=== PATIENT | female | born 1945 | race Caucasian/White ===

== ENCOUNTER 2018-03-15 10:00 | Emergency (ER) | payer MEDICARE, OTHER ==
[2018-03-15] MEDS ORDERED: cloNIDine 0.1 MG Tab PO SCH (11:45)
--- NOTE | 2018-03-18 10:59 | ER ---
DATE SEEN: 03/15/2018 TIME SEEN: The patient was seen at 1020 hours. CHIEF COMPLAINT: High blood pressure. 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 She was seen at the dentist recently to have her #8 tooth fixed "this bothers me as every time I bump it, I have pain." It is "chipped and has got a chip in the back of it." When she was at the dentist, she was told her blood pressure was elevated. Consequently, she went to see Bibi Reese. In the clinic today, her blood pressure was elevated at 230/86 and 252/100. Consequently, she was sent here for further evaluation. Laboratory work was performed and Bibi Reese spoke to me about her status. The patient's is . She is a nonsmoker, but drinks 5 beers a day. "I drink the beers because I am so anxious. I usually sit down at night and drink 5 beers a night." Last night, she got up around 0300 hours and she thought she was having beginning of her migraine. In the past, she used beta-blockers, but they do not work for headache and the fact she had a beta-jannette to help treat her blood pressure in the past and ended up falling to the floor and lying on the floor and crawling on her knees back to bed. "I do not want to take those beta- blockers anymore." She is not on any medicines for headaches. During the night, she took the ibuprofen because the ibuprofen always worked for migraines. She did not have a migraine last night, but she felt different. Consequently, she took the medicine. She felt her hands were swollen. With the elevated blood pressures, she was sent to the ED for further evaluation. She has not seen Dr. Singleton for 10 plus years. She is not a smoker. Presently, she denies lightheadedness, compromise in vision, weakness in arms, paresis, difficulty walking, chest pain, shortness of breath, cough, abdominal discomfort, back pain, although she has mild chronic low back pain. At one time, she was advised to have a shot in her back, but she denies habits, but she has had chronic low back pain, which she ignores because "she is too busy to have back pain," but she has pain that radiates down both legs, more at the left than right down to her heels (radicular pain). Past medical history significant for small bowel obstruction. Did not require excision of any bowel. "Everything was tangled up in there and had scarring." In the past, she had something wrong with her back, and one day she woke up, she felt cold and shaky and shaking her feet. Her knees hurts and "there was something wrong with my fifth vertebra and that problem has gone away." With her losartan, she was made to feel awful this morning. She was cold and shaky and she had aches in her knees because of losartan. "[place] like I had fluid on my fifth vertebrae." Her lower back hurt more than usually. Medicine makes her muscles ache slightly (side effect of losartan possibly). MEDICATIONS: 1. Flexeril 5 mg t.i.d., which was given to her by Bibi Reese 3 days ago. 2. Losartan 100 mg daily. She took a Flexeril on 03/11/2018 and Sunday she took losartan plus Flexeril, on losartan plus Flexeril. REVIEW OF SYSTEMS: Negative except for noted above. She wears glasses. Has decreased hearing. Very pleasant. No difficulty swallowing. No cardiorespiratory symptoms. No GI symptoms. No symptoms. No frequency, urgency, or dysuria. She has psychiatric-moderate anxiety. She drinks to decrease anxiety. It helps her relax. She is always "high strung" and she notes that she really does not need to drink beers, but that helps her relax in the evening. Denies depression. ALLERGIES: Penicillin. PHYSICAL EXAMINATION: VITAL SIGNS: Repeated blood pressures 212/94, 200/82, 205/87, 230/84. Heart rate 87 to 77, respirations 16 to 18, oxygen saturation 98%. Weight 77.1, 29.2 kg per metered squared. GENERAL: Very pleasant woman. She looks her age. She is very energetic, very talkative. She moves her hands around when she talks a lot. She has a great deal of emotional inflection in her voice and is very happy and energetic voice. HEENT: Eye grounds, I cannot see any AV nicking, but there is moderate dilation of the retinal veins, slightly large and normal. Moderate copper wiring of the arterial vasculature. No exudates noted. Hearing slightly decreased. Pharynx without abnormality. Gag in place. Has a tender #8 tooth. I just had her point to it because she did not want me to touch it or palpate or percuss it. NECK: She has bilateral bruits in her neck. Soft. No thyromegaly or masses in the neck. No cervical adenopathy. No tracheal tug. LUNGS: Clear without rales, rhonchi, or wheezes. HEART: S1, S2. There is a soft systolic murmur, crescendo-decrescendo, left upper sternal border greater than right upper sternal border, 1-2 intensity. It is also heard at left pectoral region and left apex. No chest wall tenderness. BREASTS: Not examined. ABDOMEN: Soft, nontender. No megaly. Bowel sounds present. Incision from the xiphoid to below the umbilicus without hernia. She feels a slight discomfort to the lateral left upper quadrant. There is a slight difference in muscle integrity aside from perhaps some mild hernia, but no evidence for mass effect. No CVA percussion tenderness. EXTREMITIES: Without edema. NEURO: Deep tendon reflexes hypoactive in upper and lower extremities. Cranial nerves 2 through 12 intact. Oriented appropriately. Gait appropriate. Romberg negative. No tremor. No pronator drift and no dysmetria. ASSESSMENT: 1. Hypertensive urgency. 2. Moderate anxiety. 3. Alcoholism with alcohol withdrawal. 4. She used alcohol to decrease her anxiety, needs to use an alternative approach. 5. Chronic low back pain with some radicular symptoms which she ignores. 6. Aortic murmur, possible atherosclerotic changes and mild mitral murmur. 7. The patient's symptoms possibly may be related to heat stress. She did not have electrolyte abnormalities. LABORATORY FINDINGS: CBC was normal with slightly elevated basophils 4%, otherwise lymphs 24, monos 8. White count 7200, hemoglobin 15.3. GFR is 54 which is relatively normal for age. BUN and creatinine ratio does not reflect dehydration 17, suggests she has adequate hydration today. Troponin less than 0.017 and total protein slightly elevated with EKG in sinus rhythm, slight borderline increased [place] interval, 212 microseconds and wandering baseline aVL and AVF with interventricular conduction defect, lead III and perhaps a Q in V3. No ST elevation. PLAN: 1. The patient should drink 2 quarts of water a day. She received clonidine 0.1 mg in the ED. 2 Start with clonidine 0.1 mg daily. A slow drop in her pressure would be helpful. Also use daughter's blood pressure machine at home. There maybe white coat syndrome effect here. She has ordered a blood pressure machine but it may take a while before she gets this. 3. Followup with the doctor and a healthcare provider next week. 4. Write down her blood pressures several times a day. 5. Discontinue drinking 5 beers a day and limit herself to 1 beer a day. ADDENDUM: The patient's blood pressure is 160/72 at 1300 hours. ASSESSMENT: Hypertensive urgency and good response to clonidine. The patient dismissed to take clonidine 0.1 mg tablet daily. Follow up with doctor on 03/18/2018. . /[id number] BLAYNE/ROBERT SMALLS
--- NOTE | 2018-03-18 10:59 | ER ---
DATE SEEN: 03/15/2018 TIME SEEN: The patient was seen at 1050 hours in the morning. SUBJECTIVE: This 73-year-old woman is attended by her daughter and is brought in because she has elevated pressure. The patient is noted to have been seen by the dentist on 03/12/2018, had an elevated blood pressure in the 180s, and the dentist refused to perform any dental intervention of her 8th tooth that was loose and chipped in the back surface of her tooth and painful. Consequently, the patient was sent to the clinic and seen by Riddhi Berg. Riddhi Berg started her on losartan 100 mg daily plus Flexeril 5 mg for chronic low back pain. Since then, her pressures have been elevated and she has had 7/10 low back pain. 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 Then, in the evening, she had 5 beers, so she could relax. She states she always has 5 beers in the evening, so she can relax and sleep. Says, "I am so anxious, I am always full of so much energy, I just have difficulty going to sleep at night, so I have 5 beers, it helps." Today, she was concerned about the elevated pressure, but the most important concern was her chief complaint of mild headache, onset at 3:00 a.m. She did not have compromise of vision, paresis, weakness, or dysesthesia, but she did not feel good and consequently took 3 ibuprofen tablets and went back to bed. The daughter was concerned because of this slight change and her usual emotional response, so brought her to the hospital for further evaluation. She was also noted to have taken blood pressure pills in the past, beta-blockers, and "they made my heart rate go so fast, when I took the second one for elevated blood pressure, I had to lay on the floor and crawl on the floor because I was so dizzy and lightheaded (probably bradycardic response)." Even after having seen Riddhi Otis on 03/13/2018 and been prescribed medicines, the patient only took her Flexeril on Sunday night; took a blood pressure pill and Flexeril on Sunday, which is the March 13; and , the , took a blood pressure pill plus Flexeril, but today she refused to take the pill because she thought the blood pressure pill was causing her problems with her headache in the middle of night, and also she thought that she was going to experience the same problem she had with the beta-blockers before, and she felt slightly nauseated. PAST MEDICAL HISTORY: Hypertension, alcoholism, not seeing the doctor for 10 plus years, and chronic low back pain. CURRENT MEDICATIONS: 1. Cyclobenzaprine 5 mg t.i.d. 2. Losartan (Cozaar) 100 mg daily. ALLERGIES: Penicillin. REVIEW OF SYSTEMS: Negative except for noted above. SOCIAL HISTORY: The patient is status post old smoker, stopped smoking in 1993, smoked for 33 years. She drinks alcohol 7 days a week, about 5 to 6 beers a night. PHYSICAL EXAMINATION: VITAL SIGNS: Blood pressure 205/87, repeat 230/84, repeat 228/84; heart rate 88; respirations 16; oxygen saturation 96%; and mean arterial pressure 126. GENERAL: The patient is attended by her daughter. She is alert and talks quite fast, quite energetic, and moves her arms around, does not have signs of fasciculation. HEENT: PERRLA intact. I did very carefully look at her eyegrounds. I was unable to see AV nicking, AV humping or plaques, but she has suggestion of change in the character of the retina, mild early macular degeneration, and early cataract in the right eye. NECK: No bruits. No thyromegaly. She has mild tracheal tug. No tracheal deviation. LUNGS: Clear without rales, rhonchi, or wheezes. HEART: S3 and S4 are louder than S1. S2 louder than S1. Slight heart murmur, 1/5 intensity. Crescendo-decrescendo, left upper sternal border, left lower sternal border and slight at the right upper sternal border. Soft murmur heard bilateral in the carotids. ABDOMEN: Soft. No guarding. No abdominal discomfort. No bruits noted. No pulsatile mass. EXTREMITIES: Lower extremities without edema. IMAGING: EKG is noted, see chart. LABORATORY FINDINGS: White count 7200, PMNs 62, lymphs 24, monos 8, hemoglobin 15.3, platelets 248,000 (the normal platelet is not consistent with her drinking excessive alcohol on a daily basis, but she has a history of the same; I am surprised she does not have thrombocytopenia). She has 4% of elevated basophils, etiology for this is indeterminate. Complete metabolic panel is normal, and troponin less than 0.017, total protein slightly elevated at 8.1. Urinalysis normal with rare bacteria, no ketones. Ethyl alcohol was less than 0.03. ASSESSMENT: 1. Hypertensive urgency. 2. Headache. She said she experienced early migraine changes. She has history of migraines with fortification spectra-lines, but she thought last night she was having an early migraine, so she took the ibuprofen 3 tablets, but did not seem to make a difference. Most likely, the headache was secondary to hypertensive urgency. 3. Chronic smoker. Chronic alcohol use, 5 beers per day to help her sleep and anxiety disorder. 4. Mild right lower knee discomfort with clinical findings of joint line pain, suggestion of meniscal changes. 5. Poor compliance - has not seen a doctor in 10 plus years. 6. History of beta-jannette intolerance, several years ago was treated, and she became dizzy, lightheaded, "had to crawl on the floor and I will never take those beta-blockers again.". EMERGENCY ROOM COURSE: The patient was given clonidine 0.1 mg and this dropped her pressure down to 160 range and she was pleased. It took a while for the patient to be dismissed. The patient was advised to decrease the beer to 1 beer a day. Low-salt diet. Check blood pressure 3 times a day and record on a 3x5 card. Stop her losartan. Start clonidine 0.1 mg daily, prescription for 30 tablets of clonidine prescribed. Follow up with doctor early next week. Bring blood pressure card with her to the doctor for further evaluation. /[id number] BLAYNE/ROBERT SMALLS
== END 2018-03-15 13:27 | disposition home or self-care (01) ==
LOC: FB.ED 10:00
DX: I16.0 Hypertensive urgency (principal); I10 Essential (primary) hypertension; R51 Headache; F17.210 Nicotine dependence, cigarettes, uncomplicated; F17.200 Nicotine dependence, unspecified, uncomplicated; F41.9 Anxiety disorder, unspecified; Z79.899 Other long term (current) drug therapy; Z88.0 Allergy status to penicillin
CPT/HCPCS: 36415; 80053; 81001; 83735; 84484; 85025; 93005; 99284; A9270; G0480

== ENCOUNTER 2023-03-16 11:12 | Emergency (ER) | payer MEDICARE, OTHER | END 2023-03-16 12:35 | disposition home or self-care (01) | LOC: FB.ED 11:12 | DX: F41.9 Anxiety disorder, unspecified (principal); I10 Essential (primary) hypertension; M19.90 Unspecified osteoarthritis, unspecified site; Z87.891 Personal history of nicotine dependence; Z79.82 Long term (current) use of aspirin; Z79.899 Other long term (current) drug therapy; Z88.0 Allergy status to penicillin | CPT/HCPCS: 99283 ==

== ENCOUNTER 2023-03-31 12:46 | Emergency (ER) | payer MEDICARE, OTHER ==
[2023-03-31] MEDS: LORazepam 2 MG/ML SDV IVPUSH ONE (12:58)
[2023-03-31 13:13] LABS: BASOPHILS ABSOLUTE AUTO 0.1 x10-3/uL (0.0-0.1); BASOPHILS PERCENT AUTO 1.2 % (0.2-1.5); EOSINOPHILS ABSOLUTE AUTO 0.3 x10-3/uL (0.0-0.8); HEMATOCRIT 41.8 % (34.2-48.2); HEMOGLOBIN 14.1 g/dL (11.4-15.5); LYMPHOCYTES PERCENT AUTO 21.7 % (18.4-52.1); MEAN CORPUSCULAR HEMOGLOBIN 30.3 pg (23.9-33.9); MEAN CORPUSCULAR HGB CONC 33.8 g/dL (31.9-34.8); MEAN CORPUSCULAR VOLUME 89.5 fL (76.7-100.5); MONOCYTES ABSOLUTE AUTO 1.2 x10-3/uL (0.3-1.0); MONOCYTES PERCENT AUTO 12.8 % (4.4-15.7); NEUTROPHILS ABSOLUTE AUTO 5.5 x10-3/uL (1.5-6.3); NEUTROPHILS PERCENT AUTO 61.3 % (30.8-76.2); PLATELET COUNT,PLT 298 x10(3)uL (151-488); RED BLOOD CELL COUNT 4.67 x10(6)uL (3.60-5.20); RED CELL DISTRIBUTION WIDTH 13.8 % (12.3-16.5)
[2023-03-31 13:20] LABS: CARBON DIOXIDE,CO2 24 mmol/L (21-32); CHLORIDE,CL 101 mmol/L (100-110); POTASSIUM,K 3.5 mmol/L (3.5-5.3); SODIUM,NA 136 mmol/L (135-145)
[2023-03-31 13:21] LABS: BLOOD UREA NITROGEN,BUN 13 mg/dL (7-18); CALCIUM 8.7 mg/dL (8.6-10.2); ESTIMATED GFR 57 mL/min (>60); GLUCOSE RANDOM 105 mg/dL (80-116)
[2023-03-31 13:27] LABS: A/G RATIO 0.9; ALANINE AMINOTRANSFERASE,ALT 21 U/L (12-36); ALBUMIN 3.5 g/dL (3.2-4.6); ALKALINE PHOSPHATASE 85 IU/L (56-112); ASPARTATE AMNIOTRANSFERASE,AST 20 IU/L (5-25); BILIRUBIN TOTAL 0.5 mg/dL (0.1-1.3); PROTEIN TOTAL,TP 7.6 g/dL (6.0-8.0)
[2023-03-31 13:28] LABS: C-REACTIVE PROTEIN 0.22 mg/dL (<0.33); TROPONIN I 19.1 pg/mL (4.0-60.3)
[2023-03-31] MEDS: Iopamidol 755 Mg/ML 100 ML Bottle IV ONE (14:29)
[2023-03-31] MEDS: Rosuvastatin 10 MG Tab PO ONE (16:14)
== END 2023-03-31 17:01 ==
LOC: FB.ED 12:46
DX: G45.9 Transient cerebral ischemic attack, unspecified (principal); G43.109 Migraine with aura, not intractable, without status migrainosus; I10 Essential (primary) hypertension; K21.9 Gastro-esophageal reflux disease without esophagitis; Z88.0 Allergy status to penicillin; Z79.82 Long term (current) use of aspirin
CPT/HCPCS: 36415; 70450; 70496; 70498; 80053; 84484; 85025; 86140; 93005; 93010; 96374; 99284; 99285-25; A9270-GY; J2060; Q9967

== ENCOUNTER 2023-04-25 04:12 | Emergency (ER) | payer MEDICARE, OTHER ==
[2023-04-25] MEDS ORDERED: Sodium Chloride 0.9% 10 ML Syringe FLUSH PRN (04:22)
[2023-04-25 04:37] LABS: BASOPHILS ABSOLUTE AUTO 0.1 x10-3/uL (0.0-0.1); BASOPHILS PERCENT AUTO 1.2 % (0.2-1.5); EOSINOPHILS ABSOLUTE AUTO 0.4 x10-3/uL (0.0-0.8); EOSINOPHILS PERCENT AUTO 3.9 % (0.6-8.1); HEMATOCRIT 39.5 % (34.2-48.2); LYMPHOCYTES PERCENT AUTO 18.1 % (18.4-52.1); MEAN CORPUSCULAR HEMOGLOBIN 29.3 pg (23.9-33.9); MEAN CORPUSCULAR HGB CONC 32.9 g/dL (31.9-34.8); MEAN CORPUSCULAR VOLUME 88.9 fL (76.7-100.5); MEAN PLATELET VOLUME 7.6 fL (7.1-12.4); MONOCYTES ABSOLUTE AUTO 0.9 x10-3/uL (0.3-1.0); MONOCYTES PERCENT AUTO 7.6 % (4.4-15.7); NEUTROPHILS ABSOLUTE AUTO 7.8 x10-3/uL (1.5-6.3); NEUTROPHILS PERCENT AUTO 69.2 % (30.8-76.2); PLATELET COUNT,PLT 386 x10(3)uL (151-488); RED BLOOD CELL COUNT 4.45 x10(6)uL (3.60-5.20); RED CELL DISTRIBUTION WIDTH 14.2 % (12.3-16.5); WHITE BLOOD CELL COUNT,WBC 11.2 x10-3/uL (3.0-10.3)
[2023-04-25 04:42] LABS: BLOOD UREA NITROGEN,BUN 16 mg/dL (7-18); BUN/CREATININE RATIO 14.5 (9-20); CARBON DIOXIDE,CO2 26 mmol/L (21-32); CHLORIDE,CL 101 mmol/L (100-110); CREATININE 1.1 mg/dL (0.55-1.02); ESTIMATED GFR 51 mL/min (>60); GLUCOSE RANDOM 129 mg/dL (80-116); POTASSIUM,K 3.9 mmol/L (3.5-5.3); SODIUM,NA 134 mmol/L (135-145)
[2023-04-25 04:47] LABS: A/G RATIO 0.9; ALANINE AMINOTRANSFERASE,ALT 26 U/L (12-36); ALBUMIN 3.6 g/dL (3.2-4.6); ALKALINE PHOSPHATASE 107 IU/L (56-112); AMYLASE 70 U/L (25-115); ASPARTATE AMNIOTRANSFERASE,AST 23 IU/L (5-25); BILIRUBIN TOTAL 0.5 mg/dL (0.1-1.3); PROTEIN TOTAL,TP 7.7 g/dL (6.0-8.0)
[2023-04-25] MEDS: Iopamidol 755 Mg/ML 100 ML Bottle IV ONE (04:57)
[2023-04-25] MEDS: hydrALAZINE 20 MG/ML SDV IVPUSH STA (05:01)
[2023-04-25] MEDS: Ondansetron 4 MG/2 ML SDV IVPUSH ONE (05:01)
[2023-04-25 05:14] LABS: BILIRUBIN,URINE NEGATIVE (NEGATIVE); GLUCOSE,URINE NORMAL (NORMAL); KETONES,URINE NEGATIVE (NEGATIVE); LEUKOCYTE ESTERASE,URINE NEGATIVE (NEGATIVE); NITRITE,URINE NEGATIVE (NEGATIVE); OCCULT BLOOD,URINE NEGATIVE (NEGATIVE); PROTEIN,URINE NEGATIVE (NEGATIVE); UROBILINOGEN,URINE NORMAL (NEGATIVE)
[2023-04-25 05:25] LABS: APPEARANCE,URINE CLEAR (CLEAR); BACTERIA,URINE FEW (NS); COLOR,URINE YELLOW (YELLOW); RBC,URINE 0-5 (0-5); SQUAMOUS EPITHELIAL CELLS,UR FEW (NS,R,O); WBC,URINE 0-5 (0-5)
[2023-04-25] MEDS: LORazepam 2 MG/ML SDV IVPUSH ONE (05:48)
== END 2023-04-25 06:27 | disposition home or self-care (01) ==
LOC: FB.ED 04:12
DX: K80.20 Calculus of gallbladder without cholecystitis without obstruction (principal); I10 Essential (primary) hypertension; F41.0 Panic disorder [episodic paroxysmal anxiety]; Z79.82 Long term (current) use of aspirin; K21.9 Gastro-esophageal reflux disease without esophagitis; Z88.0 Allergy status to penicillin
CPT/HCPCS: 36415; 74177; 80053; 81001; 82150; 83690; 85025; 96374; 96375; 99284; J0360; J2060; J2405; Q9967